=== PATIENT | male | born 1970 | race Caucasian/White ===

== ENCOUNTER 2016-12-21 16:32 | Emergency (ER) | payer SELFPAY ==
[2016-12-21 16:58] VITALS: BP 152/106
[2016-12-21] MEDS ORDERED: TORADOL ONE (17:03)
[2016-12-21] MEDS ORDERED: TORADOL IV ONE (17:09)
[2016-12-21 17:53] LABS: Alanine Aminotransferase 28 units/L (7-56); Albumin/Globulin Ratio 1.2 %; Alkaline Phosphatase 89 units/L (35-129); Anion Gap 18 mmol/L; BUN/Creatinine Ratio 22.85; Bilirubin,Total 0.7 mg/dL (0.1-1.2); Blood Urea Nitrogen 16 mg/dL (9-20); Calcium 8.9 mg/dL (8.4-10.2); Carbon Dioxide 19 mmol/L (22-30); Chloride 102.4 mmol/L (98-107); Glucose 171 mg/dL (75-100); Lipase 32 units/L (13-60); Potassium 3.6 mmol/L (3.6-5.0); Sodium 136 mmol/L (137-145); Total Protein 7.3 g/dL (6.3-8.2)
[2016-12-21 18:10] LABS: Bilirubin,Urine NEG (Negative); Blood,Urine MOD (Negative); Ketones,Urine TR mg/dL (Negative); Leukocyte Esterase,Urine NEG (Negative); Mucus,Urine 1+ /HPF; Nitrite,Urine NEG (Negative); Urobilinogen,Urine < 2.0 mg/dL (<2.0)
[2016-12-21 18:17] LABS: Eosinophils % (Auto) 1.2 % (0.0-4.3); Hematocrit 48.8 % (35.5-45.6); Hemoglobin 16.6 gm/dl (11.8-15.2); Mean Corpuscular HGB Conc 34 % (32-34); Mean Corpuscular Hemoglobin 31 pg (28-32); Mean Corpuscular Volume 92 fl (84-94); Platelet Count 213 K/mm3 (140-440); Red Blood Count 5.31 M/mm3 (3.65-5.03); Red Cell Distribution Width 12.8 % (13.2-15.2); White Blood Count 9.1 K/mm3 (4.5-11.0)
--- NOTE | 2016-12-21 19:13 | Cat Scan Report ---
FINAL REPORT PROCEDURE: CT ABDOMEN PELVIS WO CON TECHNIQUE: Computerized axial tomography of the abdomen and pelvis was performed without intravenous contrast. This study is performed without intravascular contrast material and its sensitivity for abdominal and pelvic pathology, including neoplasms, inflammation, abscess, free fluid, thrombosis, arterial dissection and infarction, is reduced compared with a contrast enhanced study. HISTORY: LLQ ABD PAIN / FLANK PAIN COMPARISON: No prior studies are available for comparison. FINDINGS: Visualized lower thorax: No significant abnormality. Liver: Liver measures 19 centimeters craniocaudal. There is diffuse low attenuation, compatible with fatty infiltration. Spleen: Normal size and attenuation. Gallbladder and biliary system: Normal. Pancreas: Normal. Adrenals: Normal. Kidneys: There is a 3 millimeter calculus in the distal left ureter, just proximal to the ureterovesical junction. There is moderate left hydroureteronephrosis. There is a 4 millimeter calculus in the left kidney upper pole. GI tract: The appendix is visualized and does not appear inflamed. No evidence of bowel obstruction or acute inflammation. Lymph nodes and mesentery: Normal. Vasculature: Normal. Bladder: Normal. Reproductive organs: Normal. Peritoneum: No free fluid. Musculoskeletal structures: Degenerative disc changes at L5-S1. Other: None. IMPRESSION: 3 millimeter calculus in the distal left ureter, with moderate left hydroureteronephrosis.
[2016-12-22] MEDS ORDERED: DILAUDID IV ONE (01:29)
[2016-12-22] MEDS ORDERED: ZOFRAN IV ONE (01:29)
[2016-12-22] MEDS ORDERED: TORADOL IV ONE (01:29)
[2016-12-22] MEDS ORDERED: NACL 0.9% 1000 ML 1,000 ML IV ONE (01:29)
--- NOTE | 2016-12-22 01:30 | Emergency Department Report ---
ED Abdominal Pain HPI - General Chief Complaint: Abdominal Pain Stated Complaint: SEVERE FLANK PAIN Time Seen by Provider: 12/22/16 01:29 Source: patient Mode of arrival: Wheelchair Limitations: Language Barrier - History of Present Illness Initial Comments: This is a 46-year-old gentleman who reports left-sided flank pain starting just prior to coming to the ED. He still describes it as colicky in nature. He states around surrounding the left lower quadrant as well. He does not go into his groin. He does not have any dysuria. Patient denies any hematuria as well. He has had kidney stone times once in his life which was small. Patient denies any nausea vomiting. No fevers. No trauma. Denies anything that makes his pain better or worse. Severity scale (0 -10): 10 - Related Data Previous Rx's Medication Instructions Recorded Last Taken Type Ibuprofen [Motrin 600 MG tab] 600 mg PO Q8H PRN #20 tablet 12/22/16 Unknown Rx Ondansetron [Zofran TAB] 4 mg PO Q8HR PRN #10 tablet 12/22/16 Unknown Rx oxyCODONE /ACETAMINOPHEN [Percocet 1 tab PO Q6HR PRN #20 tablet 12/22/16 Unknown Rx 5/325] Allergies Allergy/AdvReac Type Severity Reaction Status Date / Time No Known Allergies Allergy Unverified 12/21/16 16:54 ED Review of Systems ROS: Stated complaint: SEVERE FLANK PAIN Other details as noted in HPI Comment: All other systems reviewed and negative Constitutional: denies: chills, fever Eyes: denies: eye pain, eye discharge, vision change ENT: denies: ear pain, throat pain Respiratory: denies: cough, shortness of breath, wheezing Cardiovascular: denies: chest pain, palpitations Endocrine: no symptoms reported Gastrointestinal: abdominal pain. denies: nausea, diarrhea Genitourinary: other (flank pain). denies: urgency, dysuria Musculoskeletal: denies: back pain, joint swelling, arthralgia Skin: denies: rash, lesions Neurological: denies: headache, weakness, paresthesias Psychiatric: denies: anxiety, depression Hematological/Lymphatic: denies: easy bleeding, easy bruising ED Past Medical Hx - Past Medical History Previous Medical History?: No - Surgical History Past Surgical History?: No - Social History Smoking Status: Never Smoker Substance Use Type: None - Medications Home Medications: Home Medications Medication Instructions Recorded Confirmed Last Taken Type Ibuprofen [Motrin 600 MG tab] 600 mg PO Q8H PRN #20 tablet 12/22/16 Unknown Rx Ondansetron [Zofran TAB] 4 mg PO Q8HR PRN #10 tablet 12/22/16 Unknown Rx oxyCODONE /ACETAMINOPHEN [Percocet 1 tab PO Q6HR PRN #20 tablet 12/22/16 Unknown Rx 5/325] ED Physical Exam - General Limitations: Language Barrier General appearance: alert, in distress (due to pain) - Head Head exam: Present: atraumatic, normocephalic - Eye Eye exam: Present: normal appearance, EOMI. Absent: scleral icterus - ENT ENT exam: Present: normal exam, normal orophraynx, mucous membranes moist - Neck Neck exam: Present: normal inspection. Absent: tenderness, meningismus, lymphadenopathy - Respiratory Respiratory exam: Present: normal lung sounds bilaterally. Absent: respiratory distress, wheezes, rales - Cardiovascular Cardiovascular Exam: Present: regular rate, normal rhythm. Absent: systolic murmur, diastolic murmur, rubs, gallop - GI/Abdominal GI/Abdominal exam: Present: soft, tenderness (mild LLQ), normal bowel sounds. Absent: guarding, rebound, organomegaly, pulsatile mass - Rectal Rectal exam: Present: deferred - Extremities Exam Extremities exam: Present: normal inspection. Absent: tenderness, pedal edema, calf tenderness - Back Exam Back exam: Present: normal inspection, full ROM, CVA tenderness (L). Absent: CVA tenderness (R) - Neurological Exam Neurological exam: Present: alert, oriented X3, normal gait - Psychiatric Psychiatric exam: Present: normal affect, normal mood - Skin Skin exam: Present: warm, dry, intact, normal color. Absent: rash ED Course Vital Signs 12/21/16 12/21/16 12/22/16 16:55 17:12 02:48 Temperature 97.5 F L Pulse Rate 52 L Respiratory 20 18 18 Rate Blood Pressure 152/106 O2 Sat by Pulse 100 Oximetry - Reevaluation(s) Reevaluation #1: 12/22/16 05:41 Patient had received pain medications prior to my evaluation. He was subjectively feeling significantly much more Improved compared to his presentation according to his report. I did ask him subjectively if he's having any tenderness with palpation of his scrotum or testicles. He denies this. He study does demonstrate 3 mm ureteral calculi with moderate hydronephrosis noted. Since labs are unremarkable otherwise. His Kidney function is intact. His white count is normal. He is afebrile here. Urinalysis is unremarkable as well. I feel this is a presentation that is definitely consistent with ureterolithiasis. I did encourage patient to drink plenty of fluids a home with expectant management for passage of the stone. Patient is agreeable with this plan he has been given pain medications for home. He states his pain has been adequately controlled at this time. His abdomen for me was nonsurgical. ED Medical Decision Making - Lab Data Result diagrams: 12/21/16 17:21 12/21/16 17:21 - Radiology Data Radiology results: report reviewed, image reviewed 3 mm stone in the distal left ureter with moderate hydronephrosis Critical care attestation.: If time is entered above; I have spent that time in minutes in the direct care of this critically ill patient, excluding procedure time. ED Disposition Clinical Impression: Kidney stone on left side Disposition: DISCHARGED TO HOME OR SELFCARE Is pt being admited?: No Condition: Stable Instructions: Kidney Stones (ED) Additional Instructions: Drink plenty of fluids. Return if worsening. Prescriptions: Ibuprofen [Motrin 600 MG tab] 600 mg PO Q8H PRN #20 tablet PRN Reason: Pain Ondansetron [Zofran TAB] 4 mg PO Q8HR PRN #10 tablet PRN Reason: Nausea oxyCODONE /ACETAMINOPHEN [Percocet 5/325] 1 tab PO Q6HR PRN #20 tablet PRN Reason: Pain Referrals: PRIMARY CARE,MD [Primary Care Provider] - 3-5 Days [facility] [Provider Group] - 3-5 Days Forms: Work/School Release Form(ED) Time of Disposition: 02:23 Print Language: [id number]
== END 2016-12-22 02:50 | disposition home or self-care (01) ==
LOC: ED 16:32
DX: N20.0 Calculus of kidney (principal)
CPT/HCPCS: 36415; 74176; 80053; 81001; 83690; 85025; 96374; 96375; 96376; 99284; J1170; J1885; J2405; J7030